=== PATIENT | female | born 1960 ===

== ENCOUNTER → 2022-03-02 11:18 | Outpatient (BNVA) | payer OTHER, SELFPAY | PROVIDERS: Visit Provider Psychiatry & Neurology Psychiatry | DX: F41.1 Generalized anxiety disorder (principal) | CPT/HCPCS: 80061; 83036 ==

== ENCOUNTER 2023-02-04 09:47 | Outpatient (CLI) | payer BC, MEDICAID, SELFPAY ==
[2023-01-25 08:34] VITALS: BP 145/101; BMI 29.8
--- NOTE | 2023-02-04 10:00 | MM_ITS ---
WS: [id number] Bilateral screening 3D tomosynthesis digital mammogram, 02/04/2023 Clinical Data: SCREENING Comparison: None. Findings: The breast parenchymal pattern shows fibroglandular tissue. No spiculated masses or clustered calcifi cations are seen. There are no secondary signs of carcinoma. Impression: 1. Negative bilateral mammogram with no prior exam for review. 2. Recommend annual screening mammograms. MM/[place] [id number] BIRADS: 1-Negative FOLLOW UP: 1 Year Follow-up The CAD work checker was used.
== END 2023-02-04 09:48 | disposition home or self-care (01) ==
LOC: MOBLMAM 09:55
PROVIDERS: PCP Family Medicine; Visit Provider Family Medicine
DX: Z12.31 Encounter for screening mammogram for malignant neoplasm of breast (principal)
CPT/HCPCS: 77063; 77067

== ENCOUNTER → 2023-03-18 14:31 | Outpatient (BNVA) | payer OTHER, SELFPAY ==
[2023-03-15 10:17] VITALS: BP 145/101; BMI 29.8
== END ==
PROVIDERS: PCP Family Medicine; Visit Provider Nurse Practitioner Psychiatric/Mental Health
DX: F41.9 Anxiety disorder, unspecified (principal); F33.2 Major depressive disorder, recurrent severe without psychotic features; Z79.899 Other long term (current) drug therapy
CPT/HCPCS: 80061; 83036; 83721

== ENCOUNTER → 2023-05-26 11:03 | Outpatient (BNVA) | payer SELFPAY ==
[2023-05-19 09:51] VITALS: BP 133/75; BMI 29.4
== END ==
PROVIDERS: PCP Family Medicine; Visit Provider Family Medicine
DX: R05.9 Cough, unspecified (principal); J01.00 Acute maxillary sinusitis, unspecified; J20.9 Acute bronchitis, unspecified
CPT/HCPCS: 87400; 87426

== ENCOUNTER → 2024-03-14 10:54 | Outpatient (BNVA) | payer OTHER, SELFPAY ==
[2024-01-31 13:02] VITALS: BP 133/75; BMI 29.4
== END ==
PROVIDERS: PCP Family Medicine; Visit Provider Nurse Practitioner Psychiatric/Mental Health
DX: F33.2 Major depressive disorder, recurrent severe without psychotic features (principal); F41.1 Generalized anxiety disorder
CPT/HCPCS: 80061; 83036

== ENCOUNTER → 2024-07-24 15:31 | Outpatient (BNVA) | payer MEDICAID, SELFPAY ==
[2024-07-13 11:01] VITALS: BP 117/76; BMI 27.6
== END ==
PROVIDERS: PCP Nurse Practitioner Family; Visit Provider Nurse Practitioner Family
DX: E78.5 Hyperlipidemia, unspecified (principal)
CPT/HCPCS: 80053; 80061; 84443; 85025

== ENCOUNTER 2024-07-28 12:01 | Outpatient (CLI) | payer MEDICAID, SELFPAY ==
[2024-07-13 11:01] VITALS: BP 117/76; BMI 27.6
--- NOTE | 2024-07-28 12:40 | MM_ITS ---
WS: [id number] BILATERAL 3D TOMOSYNTHESIS DIGITAL SCREENING MAMMOGRAPHY WITH CAD CLINICAL INFORMATION: Z12.39 - Encounter for other screening for malignant neop... HISTORY: Screening mammogram. No current complaints. COMPARISON: 2022 TECHNIQUE: Bilateral CC and MLO views. FINDINGS: Scattered fibroglandular densities bilaterally. No suspicious focal mass, asymmetry, calcifications, or architectural distortion. No evidence of malignancy. MM/MM scr BI tomosynthesis [id number] IMPRESSION: DENSITY: There are scattered areas of fibroglandular density. BI-RADS: 1 - Negative. FOLLOW UP: 1 Year Follow-up Recommend return to annual screening mammography.
== END 2024-07-28 12:02 | disposition home or self-care (01) ==
LOC: RAD 12:02
PROVIDERS: PCP Nurse Practitioner Family; Visit Provider Nurse Practitioner Family
DX: Z12.31 Encounter for screening mammogram for malignant neoplasm of breast (principal)
CPT/HCPCS: 77063; 77067